=== PATIENT | female | born 1975 | race Caucasian/White ===

== ENCOUNTER 2021-01-17 04:23 | Day surgery (SDC) | payer BC, OTHER ==
[2021-01-16 13:01] VITALS: BMI 26.5
[2021-01-17] MEDS ORDERED: MIDAZOLAM HCL 2 MG/2 ML SINGLE DOSE VIAL ONE (11:15)
[2021-01-17] MEDS ORDERED: LIDOCAINE HCL 1%, 10 MG/ML (20ML VIAL) INF ONE ×2 (11:15)
[2021-01-17] MEDS ORDERED: KETOROLAC TROMETHAMINE 30 MG/1 ML VIAL ONE (11:15)
[2021-01-17] MEDS ORDERED: DEXAMETHASONE SOD PHOSPHATE 10 MG/1 ML VIAL IVPUSH ONE (11:16)
[2021-01-17] MEDS ORDERED: BUPIVACAINE HCL/PF 2.5 MG/ML - 30 ML VIAL IJ ONE ×3 (11:16)
[2021-01-17] MEDS ORDERED: IOHEXOL 180 MG/1 ML ML IJ ONE ×2 (11:17)
[2021-01-17] MEDS ORDERED: DEXAMETHASONE SOD PHOSPHATE/PF 10 MG/ML SDV ONE (11:17)
[2021-01-17 12:03] VITALS: PULSE 58; TEMP 97.9
[2021-01-17 13:08] VITALS: BP 133/80
== END 2021-01-17 13:10 | disposition home or self-care (01) ==
LOC: JASU-SURG 04:23
PROVIDERS: ATTEND Physical Medicine & Rehabilitation
PROC: 3E0T33Z Introduction of Anti-inflammatory into Peripheral Nerves and Plexi, Percutaneous Approach (ICD-10-PCS; 2021-01-17)
PROC: 3E0T3BZ Introduction of Anesthetic Agent into Peripheral Nerves and Plexi, Percutaneous Approach (ICD-10-PCS; principal; 2021-01-17 10:30)
DX: M79.661 Pain in right lower leg (principal); M79.671 Pain in right foot
CPT/HCPCS: 76000-TC-FY; 81025; J1100

== ENCOUNTER 2021-02-21 04:21 | Day surgery (SDC) | payer BC, OTHER ==
[2021-02-20 15:09] VITALS: BMI 26.4
[2021-02-21] MEDS ORDERED: MIDAZOLAM HCL 2 MG/2 ML SINGLE DOSE VIAL ONE ×2 (15:01→15:32)
[2021-02-21] MEDS ORDERED: BUPIVACAINE HCL/PF 2.5 MG/ML - 30 ML VIAL IJ ONE (15:20)
[2021-02-21] MEDS ORDERED: LIDOCAINE HCL 1%, 10 MG/ML (20ML VIAL) NR ONE (15:21)
[2021-02-21] MEDS ORDERED: PROPOFOL 20 ML ONE (15:22)
[2021-02-21] MEDS ORDERED: DEXAMETHASONE SOD PHOSPHATE 10 MG/1 ML VIAL IVPUSH ONE (15:22)
[2021-02-21] MEDS ORDERED: DEXAMETHASONE SOD PHOSPHATE 4 MG/1 ML VIAL ONE (15:22)
[2021-02-21 18:42] VITALS: PULSE 88; TEMP 97.5
[2021-02-21 18:44] VITALS: BP 126/78
== END 2021-02-21 16:45 | disposition home or self-care (01) ==
LOC: JASU-SURG 04:21
PROVIDERS: ATTEND Physical Medicine & Rehabilitation
PROC: 3E0T33Z Introduction of Anti-inflammatory into Peripheral Nerves and Plexi, Percutaneous Approach (ICD-10-PCS; 2021-02-21)
PROC: 3E0T3BZ Introduction of Anesthetic Agent into Peripheral Nerves and Plexi, Percutaneous Approach (ICD-10-PCS; 2021-02-21)
PROC: 3E0T33Z Introduction of Anti-inflammatory into Peripheral Nerves and Plexi, Percutaneous Approach (ICD-10-PCS; 2021-02-21)
PROC: 3E0T3BZ Introduction of Anesthetic Agent into Peripheral Nerves and Plexi, Percutaneous Approach (ICD-10-PCS; principal; 2021-02-21 13:30)
DX: G90.521 Complex regional pain syndrome I of right lower limb (principal); M79.671 Pain in right foot
CPT/HCPCS: 81025; J1100